=== PATIENT | female | born 1945 | race Caucasian/White ===

== ENCOUNTER 2020-10-14 13:44 | Outpatient (CLI) | payer MEDICARE, OTHER ==
[2020-10-14 15:24] LABS: Hemoglobin 12.3 g/dL (12.0-15.5); Mean Corpuscular HGB CONC 33.8 g/dL (32.0-36.0); Mean Corpuscular Hemoglobin 33.7 pg (27.0-33.0); Mean Corpuscular Volume 99.7 fl (81.6-98.3); Platelet Count 251 10x3/uL (150-450); RBC Distribution Width 13.4 % (11.5-14.5); Red Blood Cell (RBC) Count 3.65 10x6/uL (3.90-5.03); White Blood Cell (WBC) Count 8.9 10x3/uL (3.5-10.5)
[2020-10-14 15:30] LABS: Anion Gap 13 mmol/L (10-20); BUN (Urea Nitrogen) 25 mg/dL (9.8-20.1); Calc. Creatinine Clearance 0 mL/min (70-130); Calcium 10.2 mg/dL (7.8-10.44); Carbon Dioxide 26 mmol/L (23-31); Chloride 105 mmol/L (98-107); Glucose 86 mg/dL (83-110); Sodium 140 mmol/L (136-145)
[2020-10-15 02:32] LABS: SARS-CoV-2 PCR by NAA Not Detected (NotDetected)
== END 2020-10-14 13:45 | disposition home or self-care (01) ==
LOC: LABBT 13:44
PROVIDERS: ATTEND Neurological Surgery
DX: Z01.818 Encounter for other preprocedural examination (principal); Z20.822 Contact with and (suspected) exposure to COVID-19; M54.16 Radiculopathy, lumbar region; M43.16 Spondylolisthesis, lumbar region
CPT/HCPCS: 80048; 85027; U0003; U0005; 87635; 93005; 93010

== ENCOUNTER 2020-10-19 07:58 | Day surgery (SDC) | payer MEDICARE ==
[2020-10-18 11:44] VITALS: BMI 31.9
--- NOTE | 2020-10-18 19:11 | HP ---
HISTORY OF PRESENT ILLNESS: Ms. Abraham is a 75-year-old woman known to us for prior evaluations for lower back pain, who returns now finally with progressive left lower back pain that she hopes to move forward with surgical intervention. She has been treating this for the last year with epidural steroid injections as well as facet blocks and radiofrequency ablations and while her symptoms do improve, her pains continue to return after a few weeks. 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 There is also instability on flexion-extension views at L3-L4. She hopes to discuss surgical intervention at this time. PAST MEDICAL HISTORY: Significant for hypertension and coronary arterial disease. CURRENT MEDICATIONS: 1. Metoprolol. 2. Losartan. 3. HyoMax. 4. Crestor. 5. 81 mg aspirin. 6. Potassium. PAST SURGICAL HISTORY: Hysterectomy, ovarian cyst resection, carpal tunnel release, appendectomy, hemorrhoidectomy, cataract surgery, unspecified foot surgery. ALLERGIES: TO PENICILLAMINE. PHYSICAL EXAMINATION: Deferred for telehealth visit. ASSESSMENT: Lumbar back pain. PLAN: Dr. Aguilar met with the patient, reviewed imaging, advocated for L3-L5 decompression and fusion. He explained to the patient the risks, benefits, and alternatives to the procedure. The patient expressed understanding and elected to move forward with surgery as discussed. I do believe the patient is mentally competent and capable of making medical decisions for herself. We will move forward with surgery as planned. Job ID: [id number]
[2020-10-19] MEDS ORDERED: Bupivacaine PF 0.5% 30 ML VIAL ONE (08:39)
[2020-10-19] MEDS ORDERED: EPINEPHrine 1 MG/ML AMP ONE (08:39)
[2020-10-19] MEDS ORDERED: HYDROmorphone 0.5 MG/0.5 ML SYRINGE ONE (09:11)
[2020-10-19] MEDS ORDERED: Fentanyl 100 MCG/2 ML VIAL ONE (09:11)
[2020-10-19] MEDS ORDERED: Lidocaine 2% Jelly 5 ML TUBE ONE (09:11)
[2020-10-19] MEDS ORDERED: Rocuronium Bromide 10 MG/ML (10ML VIAL) ONE (09:18)
[2020-10-19] MEDS ORDERED: Lidocaine 1% PF 5 ML VIAL ONE (09:18)
[2020-10-19] MEDS ORDERED: Ondansetron PF 4 MG/2 ML Vial ONE (09:18)
[2020-10-19] MEDS ORDERED: PROPOFOL 200 MG/20 ML VIAL ONE (09:18)
[2020-10-19] MEDS ORDERED: Dexamethasone 20 MG/5 ML VIAL ONE (09:18)
[2020-10-19] MEDS ORDERED: ePHEDrine 50 MG/ML VIAL ONE (09:18)
[2020-10-19] MEDS ORDERED: Glycopyrrolate 0.2 MG/ML 5 ML SYRINGE ONE (09:18)
[2020-10-19] MEDS ORDERED: PHENYLEPHRINE-NS 100 MCG/ML 10 ML SYRINGE ONE (09:18)
[2020-10-19] MEDS ORDERED: Levofloxacin 500 mg/D5W 100 ml Premix Bag ONE (09:28)
[2020-10-19] MEDS ORDERED: Clindamycin/D5W 900 mg/50 ml Premix Bag ONE (09:28)
[2020-10-19] MEDS ORDERED: SUGAMMADEX SODIUM 200 MG/2 ML VIAL ONE (12:57)
--- NOTE | 2020-10-20 11:10 | OP ---
DATE OF PROCEDURE: 10/19/2020 ELECTRICAL AND INSTRUMENTATION MANAGER: Gianfranco Lopez PA-C INDICATION: Lumbar stenosis, lumbar radiculopathy, and back pain. PROCEDURES PERFORMED: L3 to L5 posterolateral instrumented fusion, placement of allograft, placement of autograft. ANESTHESIA: General. DESCRIPTION OF PROCEDURE: The patient was brought into the operating room and placed under general anesthesia. She was flipped from the supine to prone position on the operating room table. A linear incision was planned spanning the L3 to L5 segments. After prepping and draping and after an appropriate preoperative pause, the incision was created. The soft tissues were swept away from midline. A self-retaining retractor was placed in the wound for optimal exposure. Bilateral hemilaminectomies were performed spanning L3 to L5 in order to adequately decompress the lateral recesses as well as palpate and identify the pedicles. The laminectomies were also extended laterally to encompass the medial aspect of the facet joints in order to better decompress the exiting and descending nerve roots. Pedicle screws were then placed bilaterally spanning L3 to L5 with use of intraoperative fluoroscopy. An intraoperative 3D CT scan was then performed to confirm placement of the hardware. Rods were then placed across the screw heads and final tightened with set screws. Allograft and autograft material were then placed in the lateral confines of the instrumentation construct. The wound was then copiously irrigated. Hemostasis was maintained throughout. The wound was then closed in anatomic layers, and a pressure dressing was applied. There were no known procedural complications. Job ID: [id number] [facility]
== END 2020-10-19 15:40 | disposition home or self-care (01) ==
LOC: SDC 07:58
PROVIDERS: ATTEND Neurological Surgery
PROC: 0SG1071 Fusion of 2 or more Lumbar Vertebral Joints with Autologous Tissue Substitute, Posterior Approach, Posterior Column, Open Approach (ICD-10-PCS; principal; 2020-10-19)
DX: M48.061 Spinal stenosis, lumbar region without neurogenic claudication (principal); M54.16 Radiculopathy, lumbar region; I10 Essential (primary) hypertension; I25.10 Atherosclerotic heart disease of native coronary artery without angina pectoris; Z79.82 Long term (current) use of aspirin; Z79.899 Other long term (current) drug therapy; Z88.0 Allergy status to penicillin; Z95.5 Presence of coronary angioplasty implant and graft
CPT/HCPCS: 76000; C1713; C1768; J0171; J1100; J1170; J1956; J2405; J2704; J3010; J3490; S0020